=== PATIENT | female | born 1995 | race Caucasian/White ===

== ENCOUNTER 2016-10-31 18:03 | Emergency (ER) | payer BC, OTHER ==
--- NOTE | ~2016-10-31 | CT71 ---
[facility] A Service of [facility] & [facility] RADIOLOGY TEXT RESULTS PATIENT: PHILIP HEMPHILL LOCATION: [facility] : [birth year] UNIT #: [id number] AGE: [address]: Shannon Nix MD SEX: F ORDER DR: [id number] [facility] [address]. [place], [place] [address] [id number] MR#: [id number] #: [id number] NAME: PHILIP HEMPHILL : 1995 SEX: F STUDY DATE/TIME: 10/31/2016 19:39 UNIT: [facility] ROOM: STUDY DESCRIPTION: CT Head Wo Contrast Attending Physician: Shannon Nix M.D. Ordering Physician: Shannon Nix M.D. Primary Care Physician: Primary Care Physician No MEDICAL IMAGING REPORT This report is preliminary unless electronic signature is present EXAM Head CT without HISTORY Patient noticed a knot on the back of her head today. She also complains of dizziness today with vomiting once today. Some blurred vision today. Knot is at the posterior skull, base of the skull. It is somewhat painful but there has been no trauma and there is no cancer history. COMMENTS Routine noncontrasted head CT is reviewed. Imaging acquired in the axial plane. This CT exam was performed with one or more of the following radiation dose reduction techniques: Automatic exposure control, adjustment of mA and/or kV according to patient size, and iterative reconstruction. It does not appear that an area of interest is marked. There is no displaced calvarial fracture. The mastoid air cells and paranasal sinuses, where visualized, are clear. No osseous abnormalities appreciated. There are a few prominent lymph nodes in the posterior subcutaneous fat, but they are likely to be reactive. It would be helpful to correlate with the site of knot indicated by the patient. There is no evidence for acute intracranial hemorrhage or extraaxial fluid collection. The ventricles are normal in size and configuration, and the sanchez-white junction is well maintained. No acute cortical infarct is suspected but if this is the clinical concern, followup imaging is indicated preferably with an MRI. There is no intracranial mass effect. IMPRESSION Essentially negative noncontrast head CT. I do not believe that the area of soft tissue knot was marked by the technologist. Correlation with the site of concern is recommended. There are a few non-pathologically enlarged lymph nodes appreciated in the occipital region subcutaneous fat, STS. [facility] A Service of [facility] RADIOLOGY TEXT RESULTS PATIENT: PHILIP HEMPHILL [id number] : [birth year] UNIT #: [id number] AGE: [address]: Shannon Nix MD SEX: F ORDER DR: probably reactive. No calvarial abnormality is seen. Dictated by... Marielena Martinez M.D. THIS IS AN ELECTRONICALLY VERIFIED REPORT Marielena Martinez M.D. at 11/01/2016 10:05 AM GILBERTO/alena TD: 11/01/2016 04:08 JOB #: [id number] MEDICAL IMAGING REPORT Page 1 of 1 COPY
--- NOTE | ~2016-10-31 | EKG ---
PATIENT: PHILIP HEMPHILL UNIT #: [id number] Ventricular Rate: 88 BPM Atrial Rate: 88 BPM P-R Interval: 142 ms QRS Duration: 86 ms Q-T Interval: 386 ms QTC Calculation(Bezet): 467 ms P Franklin: 41 degrees Calculated R Franklin: 55 degrees Calculated T Franklin: 3 degrees Diagnosis Line: Normal sinus rhythm Diagnosis Line: Normal ECG Diagnosis Line: No previous ECGs available Diagnosis Line: Confirmed by TRAVIS VILLAREAL MD ([id number]) on Diagnosis Line: 11/02/2016 1:14:19 PM INTERPRETING MD: JASON
[~2016-10-31 18:03] MED LIST: AMOXICILLIN500 M1 PO; BENZONATATE PO; FLONASE16 GM
[2016-10-31 18:42] LABS: BASOPHIL# 0.1 X10e3 (0-0.3); BASOPHIL% 0.9 % (0-2.5); EOSINOPHIL# 0.3 X10e3 (0-0.7); EOSINOPHIL% 2.8 % (0.0-7.0); HEMATOCRIT 40.6 % (35.0-45.0); HEMOGLOBIN 13.4 gm/dL (12.0-16.0); LYMPHOCYTE# 2.1 X10e3 (1.0-3.5); LYMPHOCYTE% 21.3 % (17.0-45.0); MEAN CELL VOLUME 82.4 FL (83-96); MEAN CORPUSCULAR HEMOGLOBIN 27.2 PG (28-34); MEAN PLATELET VOLUME 9.9 FL (6.5-11.5); MONOCYTE# 0.9 X10e3 (0-1.0); MONOCYTE% 9.1 % (3.0-12.0); NEUTROPHIL# 6.5 X10e3 (1.5-7.1); NEUTROPHIL% 65.9 % (40-75); PLATELET COUNT 250 X10e3 (140-420); RED BLOOD COUNT 4.92 X10e (3.90-5.30); RED CELL DISTRIBUTION WIDTH 13.4 % (11.0-15.5); WHITE BLOOD COUNT 9.9 X10e3 (4.0-10.5)
[2016-10-31 18:43] LABS: DIFF IND NO
[2016-10-31 19:33] LABS: URINE SOURCE CLEAN CATCH
[2016-10-31 19:33] LABS: BILIRUBIN, DIRECT 0.1 mg/dL (0.0-0.2); BILIRUBIN,INDIRECT 0.4 mg/dL (0.0-0.9); BILIRUBIN,TOTAL 0.5 mg/dL (0.2-2.0); BUN/CREATININE RATIO 18.33; CALCIUM SERUM 8.9 mg/dL (8.4-10.2); CREATININE SERUM 0.6 mg/dL (0.6-1.4); GLOM FILT RATE Estimated 130.3 mL/min (>60); POTASSIUM 3.8 mmol/L (3.5-5.1); PROTEIN TOTAL SERUM 7.6 g/dL (6.0-8.3)
[2016-10-31 19:36] LABS: URINE APPEARANCE CLEAR; URINE BILIRUBIN NEG (NEG); URINE BLOOD NEG (NEG); URINE COLOR YELLOW; URINE GLUCOSE NEG (NEG); URINE KETONE NEG (NEG); URINE LEUKOCYTE ESTERASE 1+ (NEG); URINE NITRATE NEG (NEG); URINE PROTEIN NEG (NEG); URINE SPECIFIC GRAVITY 1.025 (1.003-1.035)
[2016-10-31 19:39] LABS: CULTURE INDICATED? YES; URINE BACTERIA AUWI 1+ (NEGATIVE); URINE SQUAMOUS EPITHELIAL CELL OCC /[HPF]
== END 2016-10-31 21:12 | disposition home or self-care (01) ==
LOC: CED 18:03
PROVIDERS: Student in an Organized Health Care Education/Training Program
DX: R55 Syncope and collapse (principal); L03.811 Cellulitis of head [any part, except face]; F17.200 Nicotine dependence, unspecified, uncomplicated
CPT/HCPCS: 36415; 70450; 80048; 80076; 81003; 84703; 85025; 85379; 87086; 93005; 96360; 99285